=== PATIENT | female | born 1990 | race African-American/Black ===

== ENCOUNTER 2017-11-14 11:39 | Emergency (ER) | payer SELFPAY ==
[~2017-11-14] VITALS: Ht 157.5 cm; Wt 49.1 kg
[2017-11-14 11:52] VITALS: BP 132/83
--- NOTE | 2017-11-14 11:58 | NUR ---
PT AMBULATES TO CHAIR B
--- NOTE | 2017-11-14 12:02 | NUR ---
27Y/F C/O COUGH, CHILLS, FEVER X 4 DAYS, VOMITING TODAY. HX; DENIES. RX; DENIES.ER MD MADE AWARE OF PT STATUS.
--- NOTE | 2017-11-14 12:19 | NUR ---
Patient being evaluated by physician at bedside.
[2017-11-14] MEDS ORDERED: IBUPROFEN 800 MG TAB PO ONE (12:20)
[2017-11-14 13:54] VITALS: BP 116/84
--- NOTE | 2017-11-14 13:54 | NUR ---
Patient discharged with v/s stable. Written and verbal after care instructions given and explained. Patient alert, oriented and verbalized understanding of instructions. Ambulatory with steady gait. All questions addressed prior to discharge. ID band removed. Patient advised to follow up with PMD. Rx of MOTRIN, PROMETHAZINE/DEXTROMETHORPHAN HYDROBROMIDE given. Patient educated on indication of medication including possible reaction and side effects. Opportunity to ask questions provided and answered.
== END 2017-11-14 13:54 | disposition home or self-care (01) ==
LOC: MED 11:39
DX: J06.9 Acute upper respiratory infection, unspecified (principal); R03.0 Elevated blood-pressure reading, without diagnosis of hypertension
CPT/HCPCS: 36415; 87081; 87804; 99284